=== PATIENT | female | born 1955 | race African-American/Black ===

== ENCOUNTER 2022-02-15 22:38 | Emergency (ER) | payer MEDICAID ==
[~2022-02-15] VITALS: Ht 175.3 cm; Wt 91.2 kg
[2022-02-15 22:52] VITALS: BP_SYST 172
--- NOTE | 2022-02-15 23:00 | NUR ---
PT FROM HOME WITH C/O OF RIGHT HAND PAIN AFTER MECHANICAL FALL AT POST OFFICE. PT STATES SHE BROKE HER FALL WITH RIGTH HAND. DENIES HEAD OMAYRA ROMERO, AND LOC. VSS. PT TO WAIT IN WAITING ROOM FOR MSE.
--- NOTE | 2022-02-15 23:01 | NUR ---
MD WITH PATIENT IN TRIAGE FOR MSE.
[2022-02-16] MEDS ORDERED: NAPR-1172 PO (01:00)
[2022-02-16 01:03] VITALS: BP_SYST 172
--- NOTE | 2022-02-16 01:03 | NUR ---
Patient given written and verbal discharge instructions and verbalizes understanding. ER DR. YADAV discussed with patient the results and treatment provided. Patient in stable condition. ID arm band removed. Rx of naproxen given. Patient educated on pain management and to follow up with PMD. Pain Scale 0. Opportunity for questions provided and answered. Medication side effect fact sheet provided.
== END 2022-02-16 01:03 | disposition home or self-care (01) ==
LOC: SED 22:38
DX: S62.346A Nondisplaced fracture of base of fifth metacarpal bone, right hand, initial encounter for closed fracture (principal); I10 Essential (primary) hypertension; E78.5 Hyperlipidemia, unspecified; Z79.899 Other long term (current) drug therapy; W18.30XA Fall on same level, unspecified, initial encounter; Y93.89 Activity, other specified; Y92.89 Other specified places as the place of occurrence of the external cause; Y99.8 Other external cause status
CPT/HCPCS: 99283